=== PATIENT | female | born 1985 | race Caucasian/White ===

== ENCOUNTER 2018-01-06 05:08 | Inpatient (IN) ==
[2018-01-06] MEDS ORDERED: ceFAZolin 2,000 MG in PREMIX 1 EACH IV PRN (05:20)
[2018-01-06] MEDS ORDERED: CITRIC ACID/SODIUM CITRATE 30 ML UDCUP PO PRN (05:20)
[2018-01-06] MEDS ORDERED: FAMOTIDINE 20 MG/2 ML VIAL IV PRN (05:20)
[2018-01-06] MEDS: LACTATED RINGERS 1,000 ML IV SCH ×2 (05:44→17:59)
[2018-01-06 05:52] LABS: Basophils # 0.1 10*3/uL (0.0-0.2); Basophils % 0.6 % (0.0-0.8); Eosinophils % 0.3 % (0.00-10.9); Hematocrit 38.7 VOL% (35.7-47.0); Hemoglobin 12.8 GM/DL (12.0-16.0); Immature Granulocytes % 0.8 %; Immature Granulocytes Absolute 0.07 #; Lymphocytes # 1.8 10*3/uL (1.4-4.0); Lymphocytes % 20.6 % (21.3-54.2); Mean Corpuscular HGB Conc 33.1 GM/DL (32-36); Mean Corpuscular Hemoglobin 29 PG (27-34); Mean Corpuscular Volume 88.8 FL (87-102); Mean Platelet Volume 9.9 FL (9.6-12.0); Monocytes # 0.5 10*3/uL (0.11-0.8); Monocytes % 6.1 % (1.7-12.7); Neutrophils # 6.2 10*3/uL (1.4-7.4); Neutrophils % 71.6 % (38.7-73.9); Platelet Count 348 T/CUMM (130-400); Red Blood Count 4.36 MC/CUMM (3.8-5.5); Red Cell Distribution Width 12.4 % (9.3-17.3); White Blood Count 8.7 T/CUMM (4-12)
[2018-01-06] MEDS ORDERED: BUPIVACAINE SPINAL 0.75% 2 ML AMP SPINAL ONE (06:36)
[2018-01-06] MEDS ORDERED: OXYTOCIN/LR 20 UNIT/1,000 ML BAG IV ONE (06:59)
[2018-01-06] MEDS ORDERED: KETOROLAC 30 MG/1 ML VIAL ONE (08:15)
[2018-01-06] MEDS ORDERED: MORPHINE 10 MG/10 ML VIAL ONE (08:15)
[2018-01-06] MEDS ORDERED: ONDANSETRON 4 MG/2 ML VIAL ONE (08:15)
[2018-01-06] MEDS ORDERED: fentaNYL 100 MCG/2 ML VIAL ONE (08:15)
[2018-01-06] MEDS ORDERED: PHENYLEPHRINE 1 MG/10 ML SYRINGE IV ONE (08:16)
[2018-01-06] MEDS ORDERED: LACTATED RINGERS 1,000 ML IV ONE (08:16)
[2018-01-06] MEDS: ceFAZolin 1,000 MG in SYRINGE 1 EACH IV SCH (16:26)
[2018-01-07 07:24] LABS: Basophils % 0.3 % (0.0-0.8); Eosinophils % 0.2 % (0.00-10.9); Hematocrit 29.6 VOL% (35.7-47.0); Hemoglobin 9.7 GM/DL (12.0-16.0); Immature Granulocytes % 0.6 %; Immature Granulocytes Absolute 0.06 #; Lymphocytes % 20.5 % (21.3-54.2); Mean Corpuscular HGB Conc 32.8 GM/DL (32-36); Mean Corpuscular Hemoglobin 29 PG (27-34); Mean Corpuscular Volume 88.4 FL (87-102); Mean Platelet Volume 9.9 FL (9.6-12.0); Monocytes # 0.5 10*3/uL (0.11-0.8); Monocytes % 5.1 % (1.7-12.7); Neutrophils # 7.1 10*3/uL (1.4-7.4); Neutrophils % 73.3 % (38.7-73.9); Platelet Count 292 T/CUMM (130-400); Red Blood Count 3.35 MC/CUMM (3.8-5.5); Red Cell Distribution Width 12.8 % (9.3-17.3); White Blood Count 9.6 T/CUMM (4-12)
[2018-01-07] MEDS: ceFAZolin 1,000 MG in SYRINGE 1 EACH IV SCH ×2 (08:05)
[2018-01-07] MEDS: IBUPROFEN 800 MG TABLET PO PRN ×2 (08:07→18:18)
[2018-01-07] MEDS: oxyCODONE/ACETAMINOPHEN 5-325 MG TABLET PO PRN ×2 (08:08→18:19)
[2018-01-07] MEDS: MAGNESIUM HYDROXIDE SUSP 30 ML UDCUP PO PRN ×2 (09:11→20:56)
[2018-01-07] MEDS: DOCUSATE SODIUM 100 MG CAPSULE PO SCH ×2 (09:11→20:56)
[2018-01-07] MEDS ORDERED: BISACODYL 10 MG SUPP RECTAL PRN (20:21)
[2018-01-07] MEDS: SIMETHICONE CHEW 80 MG TABLET PO PRN (20:56)
[2018-01-08 07:25] VITALS: BP 136/79
[2018-01-08] MEDS: DOCUSATE SODIUM 100 MG CAPSULE PO SCH ×2 (08:58→09:00)
[2018-01-08] MEDS: SIMETHICONE CHEW 80 MG TABLET PO PRN (08:58)
== END 2018-01-08 12:30 | disposition home or self-care (01) | DRG 766 ==
LOC: N.LDOUT 05:08 → N.LD 05:14 → N.OB 11:50
PROVIDERS: ADMIT Specialist; ATTEND Specialist
PROC: LDCSECT (ICD-10-PCS; 2018-01-06 08:30)